=== PATIENT | female | born 1955 | race Caucasian/White ===

== ENCOUNTER → 2024-09-07 | Outpatient (CLI) | payer MEDICARE, OTHER | END | disposition home or self-care (01) | LOC: EDUNIT# 13:30 → RAD 13:32 | PROVIDERS: ATTEND Internal Medicine | DX: I08.1 Rheumatic disorders of both mitral and tricuspid valves (principal); I11.9 Hypertensive heart disease without heart failure; R94.39 Abnormal result of other cardiovascular function study; I25.110 Atherosclerotic heart disease of native coronary artery with unstable angina pectoris; I25.82 Chronic total occlusion of coronary artery; I10 Essential (primary) hypertension; Z82.49 Family history of ischemic heart disease and other diseases of the circulatory system | CPT/HCPCS: 36415; 80048; 85025; 85610; 93005; 93306 ==

== ENCOUNTER → 2024-09-09 | Day surgery (SDC) | payer MEDICARE, OTHER ==
[2024-09-07 15:12] VITALS: BP 170/86; PULSE 72; RESP 18; TEMP 98.2; O2SAT 99
[2024-09-07 16:26] LABS: BASOPHIL % 0.6 % (0.1-1.2); EOSINOPHIL # 0.2 10^3/uL (0.0-0.2); EOSINOPHIL % 2.3 % (0.0-5.0); HEMATOCRIT(ML) 47.4 % (36.0-46.0); HEMOGLOBIN 15.6 g/dL (12.0-15.0); LYMPHOCYTES % 31.4 % (24.0-44.0); MEAN CORP HGB 29.7 pg (26-34); MEAN CORP HGB CONCENTRATION 32.9 g/dL (33-36.5); MEAN CORP VOLUME 90.1 fL (78-100); MONOCYTES # 0.6 10^3/uL (0.3-0.8); NEUTROPHIL # 4.1 10^3/uL (1.8-7.7); NEUTROPHILS % 57.7 % (41.0-85.0); PLATELET COUNT 376 10^3/uL (150-400); RED BLOOD CELL 5.26 10^6/uL (4.00-5.20)
[2024-09-07 16:27] LABS: +ADD MANUAL DIFF(NO CHRG) NO
[2024-09-07 16:37] LABS: PROTHROMBIN PROTIME 9.9 SEC (9.3-11.6)
[2024-09-07 16:41] LABS: BUN/CREATININE RATIO 16.36 (10.0-20.0); CALCIUM 9.6 mg/dL (8.4-10.5); CARBON DIOXIDE 30.6 mmol/L (20.0-32); CREATININE SERUM 1.1 mg/dL (0.59-1.40); POTASSIUM 3.6 mmol/L (3.6-5.2)
[~2024-09-09] VITALS: Ht 160 cm; Wt 65.3 kg
[2024-09-09] VITALS (16 sets, daily range): BP systolic 125–194; BP diastolic 70–99; PULSE 64–77; RESP 16–18; TEMP 97–97.2; O2SAT 94–100
[~2024-09-09] MED LIST: HEPARIN ONE; SUBLIMAZE 100MCG/2ML ONE; VERSED ONE; XYLOCAINE ONE
[2024-09-09] MEDS: NS 1000ML 1,000 ML IV ONE (12:15)
== END | disposition home or self-care (01) ==
LOC: SDC 11:45
PROVIDERS: ATTEND Internal Medicine
DX: R94.39 Abnormal result of other cardiovascular function study (principal); I25.110 Atherosclerotic heart disease of native coronary artery with unstable angina pectoris; I25.82 Chronic total occlusion of coronary artery; I10 Essential (primary) hypertension; Z82.49 Family history of ischemic heart disease and other diseases of the circulatory system
CPT/HCPCS: 85025; 36415; 80048; 85610; 93005; 93458; 99153; 99152; J1644 ×2; C1769 ×2; A6258; C1887; J2250; J3010; A4618; E0617; C1766; Q9967